=== PATIENT | male | born 1990 | race Caucasian/White ===

== ENCOUNTER 2020-02-21 10:27 | Emergency (ER) | payer OTHER, SELFPAY ==
[2020-02-21 10:52] VITALS: BP 111/67; PULSE 83; RESP 16; TEMP 36.8; O2SAT 99; BMI 24.5
[2020-02-21 11:00] VITALS: BP 111/67; PULSE 84; RESP 18; TEMP 36.8; O2SAT 96
--- NOTE | 2020-02-21 11:27 | ED_ITS ---
HPI - Dental/Oral General Chief complaint: Dental/Oral Stated complaint: dental pain Time Seen by Provider: 02/21/20 11:16 Source: patient Mode of arrival: ambulatory Limitations: no limitations History of Present Illness HPI Narrative: 29yo M c No Sig PMHx presenting to the ED c c/o r lower dental pain x 3 days c associated r lower facial swelling/pain. Denies fever, chills, N/V/D, Difficulty swallowing, pain with swallowing, changes in PO intake, trauma to face now or recently, difficulty speaking, recent dental procedure, heat or cold intolerance while eating, gum swelling, throat swelling, bleeding, lacera tions, facial redness, tongue swelling. Related Data Previous Rx's Medication Instructions Recorded ibuprofen 800 mg PO Q8H PRN #14 tab 02/21/20 oxycodone-acetaminophen [Percocet] 1 tab PO Q6H PRN #14 tab 02/21/20 penicillin V potassium 500 mg PO QID 14 Days #56 tab 02/21/20 Allergies Allergy/AdvReac Type Severity Reaction Status Date / Time No Known Allergies Allergy Verified 02/21/20 10:55 [No Known Allergies*] Review of Systems Review of Systems: Yes all other systems are reviewed and are negative Constitutional: Constitutional: Reports as per HPI Eyes: Eyes: Reports as per HPI ENT: Reports as per HPI Cardiovascular: Cardiovascular: Reports as per HPI Respiratory: Respiratory: Reports as per HPI Gastrointestinal: Gastrointestinal: Reports as per HPI Genitourinary: Genitourinary: Reports as per HPI Musculoskeletal: Musculoskeletal: Reports as per HPI Integumentary/Breasts: Skin/Breast: Reports as per HPI Neurologic: Reports as per HPI Psychiatric: Psychiatric: Reports as per HPI Endocrine: Endocrine: Reports as per HPI Hematologic/Lymphatic: Hematologic/Lymphatic: Reports as per HPI Allergic/Immunologic: Allergic/Immunologic: Reports as per HPI PMFSH Past Medical History Attestation statement: The following information was validated with the patient. Social History Social History Smoking Status: Current every day smoker Use of substances other than those prescribed or required for medical reasons: Yes Substance Use Type: Heroin Substance Use Frequency: Weekly Last Used Substance: Hours (ago) Advance Directives: No Advance Directives Information Provided: No Physical Exam Vital Signs: Vital Signs: Vital Signs Temp Pulse Resp BP Pulse Ox 02/21/20 11:00 98.2 F 84 18 111/67 96 02/21/20 10:52 98.2 F 83 16 111/67 99 Body Mass Index 24.5 Const: General: cooperative, healthy appearing, comfortable, no acute distress, well developed, alert, awake and Physically active Nutritional Appearance: average body habitus and well nourished Orientation/consciousness: patient oriented x3 Limitations: no limitations HENMT: Head: Yes normal to inspection, Yes No palpable skull fracture present, Yes normocephalic and Yes atraumatic Ears: hearing grossly normal bilaterally and external ears normal General nose exam: Normal external nose present Face and sinus: Yes other (sts to r lower mandible aspect no erythema noted ) Mouth: Normal oral and palatal mucosa present, lip normal, tongue normal, Normal salivary glands and ducts present, oropharynx normal and moist mucous membranes Teeth and gingiva: gingiva normal, caries (throughout c old dental partial fr actures noted ), poor dentition and other (to r lower tooth molar to external aspect there is fluctuance noted. ) Throat: Yes posterior oropharynx normal, Yes tonsils normal and Yes uvula midline Eyes: General: appearance normal, both eyes and all related structures Visual Pat: normal visual pat by confrontation Alignment and Position: alignment normal Periorbital: periorbital findings normal Eyelids: Yes eyelids normal Conjunctivae: conjunctivae normal Sclerae: sclerae normal Pupils: Equal, round and reactive pupils present EOM: EOMs intact bilaterally Neck: Neck: Yes normal visual inspection, Yes full ROM, Yes no lymphadenopathy, Yes no meningeal signs, Yes trachea midline and Yes supple Chest: Chest palpation & inspection: normal inspection of the chest Resp: Effort & Inspection: normal respiratory effort and able to speak in complete sentences Auscultation: clear to auscultation bilaterally, no crackles, no rales, no rhonchi and no wheezes Cardio: Rate: regular rate Rhythm: regular rhythm Heart sounds: S1 normal heart sound present and S2 normal heart sound present Peripheral pulses: Peripheral pulses 2+ throughout GI: Inspection: Yes normal to inspection Palpation (GI): Soft to palpation, nontender and No hepatosplenomegaly present Percussion: Yes normal to percussion Auscultation: normal bowel sounds : General: Yes no CVA tenderness Back/Spine/Pelvis: Back: no CVA tenderness Cervical Spine: normal cervical lordosis and cervical ROM normal Thoracic/Lumbar Spine: thoracic and lumbar spine normal to inspection, No Thoracic/lumbar spine scar(s), thoraco-lumbar ROM normal, straight leg raise negative bilaterally, pain with thoraco-lumbar ROM, paraspinal muscle tenderness, No thoraco-lumbar ROM limited, thoraco-lumbar spasm, No thoracic spinal tenderness, No lumbar spinal tenderness and other (No rashes/lesion/induration/fluctuance or signs infection noted.) Skin: General skin exam: no rashes or lesions noted, elasticity normal and turgor normal Trauma: no lacerations or abrasions Wounds: no wounds Hair: normal Nails: normal Neuro: General: patient oriented x3 and no meningeal signs Cranial nerves: Yes CN's II-XII intact bilaterally and Yes Equal, round and reactive pupils present Cognition (Neuro): normal cognition Gait exam (Neuro): Normal gait present Motor exam (neuro): 5/5 motor strength present throughout Extrem: General: Yes normal to inspection, Yes full ROM, Yes capillary refill normal, Yes no clubbing, cyanosis or edema, No no pedal edema, No no calf tenderness, Yes normal gait and No edema Right upper extremity: normal to inspection, full ROM and normal capillary refill; no edema Left upper extremity: normal to inspection, full ROM and normal capillary refill; no edema Right lower extremity: normal to inspection, full ROM and normal capillary refill; no edema Left lower extremity: normal to inspection, full ROM and normal capillary refill; no edema Psych: Appearance: grossly normal and well kempt Mental Status: mental status grossly normal Speech and movement: Normal speech and movement present and Clear speech present Affect: normal affect Attitude: cooperative Thought process: Normal thought process present Thought content: Normal thought content present Insight: Good insight present (Psych) Judgement: Good judgement present (Psych) Course Course Course Narrative: On physical exam - multiple missing teeth, with poor dentition. No redness, increased warmth or red streaking. No periorbital tenderness. Patient does have mild soft tissue swelling to right lower mandible aspect and Internal inspection pt noted to have fluctuance to the right lower external aspect of the posterior molars possible abscess. Patient is now status post I and D of abscess. Tolerated procedure well. Floor of the mouth is soft to palpation without masses. Speaking full sentences handling secretions without any difficulty. EOMI. Patient well appearing non toxic, well hydrated, speaking full sentences handling secretions without any difficulty. No cellulitis or lymphangitis. Given HPI and PE, most likely diagnosis: Tooth abscess. No cellulits, lymphangitis. Patient is afebrile, well appearing in no acute distress. No ginigival swelling, or bleeding. Multiple dental carries and poor dentition. Patient will make an appointment tomorrow with his dentist for this week. I I&D'ed the abscess, treated the pt's pain and infection. Educated on signs of worsening symptoms and advised to return to ED, should experience fever, N/V. Patient understands and agrees with plan. Procedures Abscess I/D Site: oral (right lower molar ) Side (if applicable): right Local Anesthetic: lidocaine 2% Amount of anesthesia used (mL): 5 Technique: needle aspiration and incised with blade Amount of fluid expressed (mL): 2 Sent for culture/gram staining?: No Irrigation: Yes Packing used?: none Complications: pain and bleeding (1ml) Discharge Plan Discharge Clinical Impression: Dental abscess, Dental caries, Pain due to dental caries Patient Disposition: Home, Self-Care Instructions: Dental Abscess (ED) Prescriptions: New oxycodone-acetaminophen [Percocet] 5-325 mg tablet 1 tab PO Q6H PRN (Reason: pain) Qty: 14 RF: 0 ibuprofen 800 mg tablet 800 mg PO Q8H PRN (Reason: pain) Qty: 14 RF: 0 penicillin V potassium 500 mg tablet 500 mg PO QID 14 Days Qty: 56 RF: 0
[2020-02-21] MEDS: oxyCODONE HCl Immed Release 5 MG TABLET PO (11:41)
[2020-02-21] MEDS: Lidocaine HCl 2 % MPF 5 ML VIAL INFILTRATI (11:41)
[2020-02-21] MEDS: Penicillin V Potassium 250 MG TABLET 500 MG PO (11:41)
== END 2020-02-21 12:06 | disposition home or self-care (01) ==
PROVIDERS: Emergency Provider Emergency Medicine
DX: K04.7 Periapical abscess without sinus (principal); K02.9 Dental caries, unspecified; K08.89 Other specified disorders of teeth and supporting structures; F17.200 Nicotine dependence, unspecified, uncomplicated; F11.90 Opioid use, unspecified, uncomplicated
CPT/HCPCS: 41800; 99283; 99284

== ENCOUNTER 2022-08-31 14:15 | Emergency (ER) | payer MEDICAID, SELFPAY ==
[2022-08-31 14:18] VITALS: BP 128/70; BP 136/56; PULSE 77; PULSE 80; RESP 18; TEMP 36.4; O2SAT 100; O2SAT 99; BMI 23.6
[2022-08-31] MEDS: Tetracaine HCl/PF 0.5% Oph Sol 4 ML DROPS 1 DROP EYE-LEFT (16:58)
[2022-08-31] MEDS: Fluorescein Sodium STRIP 1 STRIP EYE-LEFT (16:58)
--- NOTE | 2022-08-31 17:01 | ED.GENADULT ---
HPI - General Adult General Chief complaint: Eye Problems Stated complaint: R eye pain x 2 weeks per EMS History of Present Illness HPI narrative: Patient complains of pain right side of his mouth radiating to his right orbit area as well as some redness in the right eye and some pain in the right eye He denies any vision loss there is no photophobia, it does hurt worse when he moves his eyes left and right, this is been going on for 2 weeks, denies any discharge from the eye, pain is mild and has not changed in 2 weeks He denies fever chills, denies any difficulty swallowing Related Data Previous Rx's Medication Instructions Recorded ibuprofen 800 mg tablet 800 mg PO Q8H PRN pain #14 tabs 02/21/20 oxycodone-acetaminophen 5 mg-325 1 tab PO Q6H PRN pain #14 tabs 02/21/20 mg tablet (Percocet) penicillin V potassium 500 mg 500 mg PO QID den 14 days #56 tabs 02/21/20 tablet amoxicillin 875 mg-potassium 1 tab PO Q12H 7 days #14 tabs 08/31/22 clavulanate 125 mg tablet ibuprofen 600 mg tablet 600 mg PO Q6H PRN pain #20 tabs 08/31/22 Allergies Allergy/AdvReac Type Severity Reaction Status Date / Time No Known Allergies Allergy Verified 02/21/20 10:55 [No Known Allergies*] [facility] Past Medical History Source: nursing notes reviewed Social History Social History Substance Use Type: Heroin Advance Directives: No Advance Directives Information Provided: Yes Physical Exam ED Vital Signs: Vital Signs - 24 hr 08/31/22 14:18 Temperature 97.6 F Pulse Rate 77 Respiratory Rate 18 Blood Pressure 136/56 L Pulse Oximetry 100 BMI result Body Mass Index 23.6 General appearance is no acute distress The eye exam there is a right sub conjunctival hemorrhage in the right lower outer aspect of the eye, the conjunctiva are normal no redness or discharge Pupils equal round reactive to light extraocular motions are intact Visual acuity was 2020 bilateral Staining with fluorescein no dye uptake Palpation of the eye there is no tenderness or bulging of the eye iop reading on right eye only was 14 There was some mild tenderness to the right lower orbit but no periorbital erythema or swelling The dental exam there is a cracked upper molar on the upper right, this was tender but there was no fluctuant abscess no impairment of breathing or swallowing no swelling under the tongue Neck is supple Respiratory no distress Extremities full range of motion x4 Skin no rash Course Course Course Narrative: There were no acute findings on the eye exam othe than right subconjunctival hemorrhage, visual acuity was 2020 bilaterally, IOP was normal, no dye uptake was staining no photophobia There was a right maxillary tooth that was tender to touch and patient does complain that he believes the pain is radiating from that area into his eye, so pain around the eye is likely from a dental infection or a cracked tooth exposing He is advised to follow with a dentist and started on Augmentin antibiotic Medications Administered Discontinued Medications Generic Name Dose Route Start Last Admin Trade Name Ezioq PRN Reason Stop Dose Admin Amoxicillin/Clavulanate Potassium 875 mg 08/31/22 17:15 08/31/22 17:18 Amoxicillin/Potassium Clav 875 Mg Tablet PO 08/31/22 17:16 875 mg ONCE ONE Administration Fluorescein Sodium 1 strip 08/31/22 16:35 08/31/22 16:58 Fluorescein Sodium Strip EYE-LEFT 08/31/22 16:36 1 strip ONCE ONE Administration Ibuprofen 600 mg 08/31/22 17:15 08/31/22 17:18 Ibuprofen 600 Mg Tablet PO 08/31/22 17:16 600 mg ONCE ONE Administration Tetracaine HCl 1 drop 08/31/22 16:35 08/31/22 16:58 Tetracaine Hcl/Pf 0.5% Oph So 4 Ml Drops EYE-LEFT 08/31/22 16:36 1 drop ONCE ONE Administration Discharge Plan Discharge Clinical Impression: Dental caries Patient Disposition: Home, Self-Care Additional Instructions: I believe the pain shooting into her right eye is from an infection in mouth pressing on a nerve, which can happen with dental infections vision was normal and the exam of eye was normal except for a subconjunctival hemorrhage which is a broken vessel in the white part of the eye which is not harmful Follow with dentist If needed follow routinely with eye doctor but any worsening eye pain or vision loss come back to the ER Should eye pain worsen, any vision loss, any worse condition or any concerns return to the emergency room Prescriptions: New amoxicillin-pot clavulanate 875-125 mg tablet 1 tab PO Q12H 7 Days Qty: 14 0RF ibuprofen 600 mg tablet 600 mg PO Q6H PRN (Reason: pain) Qty: 20 0RF No Action oxycodone-acetaminophen [Percocet] 5-325 mg tablet 1 tab PO Q6H PRN (Reason: pain) Qty: 14 0RF ibuprofen 800 mg tablet 800 mg PO Q8H PRN (Reason: pain) Qty: 14 0RF penicillin V potassium 500 mg tablet 500 mg PO QID 14 Days Qty: 56 0RF Referrals: Sandeep Mcginnis [Physician] - (Right eye pain) Interventions: ED Discharge Assessment Last Done: 08/31/22 17:20 Discharge Date/Time: 08/31/22 17:20
[2022-08-31] MEDS: Ibuprofen 600 MG TABLET PO (17:18)
[2022-08-31] MEDS: Amoxicillin/Potassium Clav 875 MG TABLET PO (17:18)
== END 2022-08-31 17:20 | disposition home or self-care (01) ==
PROVIDERS: Emergency Provider Emergency Medicine Emergency Medical Services
DX: K02.9 Dental caries, unspecified (principal)
CPT/HCPCS: 99283

== ENCOUNTER 2024-06-21 19:31 | Emergency (ER) | payer OTHER, SELFPAY ==
[2024-06-21] VITALS (12 sets, daily range): BP systolic 117–141; BP diastolic 55–81; PULSE 59–80; RESP 16–116; TEMP 36.8–36.9; O2SAT 98–100; BMI 25.5
--- NOTE | ~2024-06-21 | CT_ITS ---
CLINICAL HISTORY: fall 8-10 ft ladder, brief LOC CT abdomen and pelvis without contrast Comparison: None Findings: Please refer to separate report for chest CT. No acute solid abdominal organ injury by noncontrast imaging. Splenomegaly with the spleen measuring 14 cm. Gallbladder is contracted but otherwise unremarkable. Ingested material and/or debris of the imaged stomach. No small bowel obstruction. Appendix is not definitively seen. Right lower quadrant is mostly obscured by superficial metal artifacts. Severe stool burden is noted, including the cecum. No free intraperitoneal air. Prostate gland and urinary bladder are unremarkable for noncontrast CT with artifacts. No acute pelvic fracture. Partial fusion L3 and L4. Facet arthropathy of the lumbar spine is greater than expected for age. Schmorl's nodes including thoracic vertebrae. [id number] osteoarthritis of the right hip is greater than expected for age. Mild osteoarthritis of the left hip is greater than expected for age. IMPRESSION: 1. No acute solid abdominal organ injury. 2. Splenomegaly. 3. Severe stool burden. 4. No acute pelvic fracture. 5. Degenerative changes including hips and spine are greater than expected for age. This document has been electronically signed by: Steve Morales MD on 06/21/2024 21:33:16
--- NOTE | ~2024-06-21 | CT_ITS ---
CLINICAL HISTORY: fall 8-10 ft ladder, brief LOC CT head without contrast Comparison: No prior brain imaging available at this time. Findings: No acute intracranial hemorrhage. No midline shift or hydrocephalus. No arterial territorial infarction by CT. Posterior fossa arachnoid cyst measures up to 0.5 cm. No acute skull fracture, in the [id number]. Imaged paranasal sinuses and imaged mastoid air cells are well aerated. Imaged orbits are unremarkable. IMPRESSION: 1. No acute intracranial abnormality by CT. 2. No acute skull fracture. This document has been electronically signed by: Steve Morales MD on 06/21/2024 21:35:35
--- NOTE | ~2024-06-21 | CT_ITS ---
CLINICAL HISTORY: fall 8-[address] cervical spine without contrast Comparison: None Findings: No acute fracture of the cervical spine. Mild straightening of the cervical lordosis. No significant listhesis. No osseous spinal stenosis by CT. Mild/minimal osteoarthritis of the craniocervical junction. Mild ligament calcifications and small osteophytes are noted. Small hemangioma is present including C7 vertebral body. No paraspinal hematoma. Mild motion about imaged lung apices. IMPRESSION: No acute fracture of the cervical spine. This document has been electronically signed by: Steve Morales MD on 06/21/2024 21:30:20
--- NOTE | ~2024-06-21 | XR_ITS ---
CLINICAL HISTORY: fall, pain, deformity 4 view right wrist Comparison: None Findings: Acute comminuted and dorsally displaced fracture of the right distal radius. No significant loss of joint space, osteophyte, or erosions. No radiopaque foreign body. IMPRESSION: 1. Acute comminuted and dorsally displaced fracture of the right distal radius. This document has been electronically signed by: Simone Elaine MD on 06/21/2024 20:50:16
--- NOTE | ~2024-06-21 | XR_ITS ---
CLINICAL HISTORY: Postreduction 3 view right wrist Comparison: X-rays of the right wrist from 06/21/2024 at 10:59 p.m. and 8:18 p.m. Findings: Redemonstration of the acute comminuted distal radius intra-articular fractures. Soft tissue swelling and effusion redemonstrated. No displaced carpal fracture or dislocation. Mild angulation with apex directed dorsally. New plaster splint and/or cast artifact present. IMPRESSION: Redemonstration of the distal radius fractures post casting. And with improved alignment compared to 8:18 p.m. This document has been electronically signed by: Steve Morales MD on 06/21/2024 23:39:32
--- NOTE | ~2024-06-21 | CT_ITS ---
CLINICAL HISTORY: fall 8-10 ft ladder, brief LOC CT chest without contrast Comparison: CT of the abdomen and pelvis from same day. Findings: No consolidation, pneumothorax, or pleural effusion. No mediastinal hematoma in this noncontrast study. Mild residual thymic tissue. Nonenlarged medial sternal lymph nodes. Heart size within limits of normal. Acute nondisplaced left anterior lateral 10th rib fracture. Mild vertebral height losses appear old with multifocal Schmorl's nodes. Please refer to separate report for included abdomen. IMPRESSION: 1. Acute nondisplaced left lower rib fracture. 2. No pneumothorax or consolidation. This document has been electronically signed by: Steve Morales MD on 06/21/2024 21:32:57
--- NOTE | ~2024-06-21 | XR_ITS ---
CLINICAL HISTORY: Second postreduction series 3 view right wrist Comparison: X-rays of the right wrist from 06/21/2024 at 10:59 p.m. and 8:18 p.m. Findings: Redemonstration of the acute comminuted distal radius intra-articular fractures. Soft tissue swelling and effusion redemonstrated. No displaced carpal fracture or dislocation. Mild angulation with apex directed dorsally. New plaster splint and/or cast artifact present. IMPRESSION: Redemonstration of the distal radius fractures post casting. And with improved alignment compared to 8:18 p.m. This document has been electronically signed by: Steve Morales MD on 06/22/2024 00:03:29
--- NOTE | 2024-06-21 19:40 | ED_ITS ---
HPI - Extremity Injury (Upper) General Chief Complaint: Fall Stated Complaint: ? broken wrist / arm Time Seen by Provider: 06/21/24 20:16 Related Data Home Medications ?Medication ?Instructions ?Recorded ?Confirmed methadone 10 mg tablet 65 mg PO DAILY 06/23/24 Allergies Allergy/AdvReac Type Severity Reaction Status Date / Time No Known Allergies Allergy Verified 06/21/24 19:42 [No Known Allergies*] [facility] Social History Social History Substance Use Type: Crack/Cocaine Physical Exam 2 Vital Signs: Vital Signs: Last Vital Signs Temp 98.4 F 06/22/24 00:16 Pulse 73 06/22/24 00:16 Resp 16 06/22/24 00:16 BP 126/64 06/22/24 00:16 Pulse Ox 100 06/22/24 00:16 O2 Del Method Room Air 06/22/24 00:16 O2 Flow Rate 2 06/21/24 23:23 BMI result Body Mass Index 25.5 Course Course Course Narrative: This is an RME performed by Nemo Lin CNP: Additional HPI, ROS, PE not included below will be deferred to primary provider. Patient is a 33-year-old male left-hand dominant who presents emergency department for evaluation of a right wrist injury. He reports prior to arrival he was on a ladder attempting to hang something for a friend when he lost his balance and fell approximately 8-10 feet, states fall landing onto left side, unclear whether any head strike or not, states i blacked out for like 2 weconds then got up on his own, believes when he landed his right wrist was in an outstretched position. Denies use of anticoagulants or known coagulation disorders. Pain is 10/10 to the right wrist. Also endorsing pain to the left proximal femur/hip. Ambulatory with steady gait. No focal neurological deficits. Denies chest pain, shortness of breath, abdominal pain. Right wrist with obvious deformity, 1+ radial pulse, decreased sensation and movement to digits. No focal neuro deficits, no midline cervical/thorocic/lumbar spine tenderness, step-offs, deformities. Ambulatory with steady gait. XR right wrist and left hip which will include localized area of proximal femur he was endorsing pain to exclude fracture/dislocation. Given height of fall, obtaining trauma CT scan head, cervical spine, chest, abdomen pelvis. Reevaluation(s) Reevaluation #1: See additional note dated 06/21/[address] Sullivan Medications Administered Discontinued Medications Generic Name Dose Route Start Last Admin Trade Name Saundra PRN Reason Stop Dose Admin Hydromorphone HCl 1 mg 06/21/24 20:19 06/21/24 21:17 Hydromorphone Hcl 1 Mg/Ml Syringe IVPUSH 06/21/24 20:20 1 mg ONCE ONE Administration Protocol Lidocaine HCl 5 ml 06/21/24 21:54 06/21/24 22:39 Lidocaine Hcl 1 % Mpf 5 Ml Vial INFILTRATI 06/21/24 21:55 5 ml ONCE ONE Administration Lidocaine HCl 5 ml 06/21/24 21:54 06/21/24 22:40 Lidocaine Hcl 1 % Mpf 5 Ml Vial INFILTRATI 06/21/24 21:55 5 ml ONCE STA Administration Propofol 150 mg 06/21/24 21:55 06/21/24 22:40 Propofol 200 Mg/20 Ml Vial IVPUSH 06/21/24 21:56 150 mg ONCE ONE Administration Propofol 50 mg 06/21/24 23:18 06/21/24 23:20 Propofol 200 Mg/20 Ml Vial IVPUSH 06/21/24 23:19 50 mg ONCE ONE Administration Medical Decision Making Lab Data 06/21/24 21:43 06/21/24 21:43 Labs: Lab Results 06/21/24 Range/Units 21:43 WBC 7.0 (4.8-10.8) X10*3/uL RBC 4.18 L (4.60-5.80) X10*6/uL Hgb 11.9 L (14.0-18.0) g/dl Hct 35.0 L (42.0-52.0) % MCV 83.7 (80.0-98.0) fL MCH 28.5 (27.0-33.0) pg MCHC 34.0 (31.0-36.0) g/dl RDW 13.3 (11.0-16.0) % Plt Count 172 (160-400) X10*3/uL MPV 9.8 (9.4-12.4) fL Immature Gran % (Auto) 0.4 (0.0-0.4) % Neut % (Auto) 71.5 (45-73) % Lymph % (Auto) 17.8 L (20-40) % Cass % (Auto) 6.8 (2-11) % Eos % (Auto) 3.1 (0-4) % Baso % (Auto) 0.4 (0-2) % Lymph # (Auto) 1.3 (1.2-4.9) X10*3/uL Cass # (Auto) 0.5 (0.1-1.2) X10*3/uL Eos # (Auto) 0.2 (0.0-0.4) X10*3/uL Baso # (Auto) 0.0 (0.0-0.2) X10*3/uL Abs Immat Gran (auto) 0.03 (0.00-0.03) X10*3/uL Absolute Neuts (auto) 5.0 (2.0-8.3) x10*3/uL Absolute Nucleated RBC 0.000 (0.0-0.012) X10*3/uL Nucleated RBC % (auto) 0.0 (0.0-0.2) /100WBC PT 11.5 (10.9-12.4) SEC INR 1.0 (0.9-1.1) Sodium 141 (135-145) mmol/L Potassium 4.6 (3.3-5.1) mmol/L Chloride 109 H (96-108) mmol/L Carbon Dioxide 23 (22-29) mmol/L Anion Gap 14 (12-20) BUN 20 H (9-16) mg/dL Creatinine 0.80 (0.5-1.4) mg/dL Estim Creat Clear Calc 133.7 Estimated GFR > 60 Random Glucose 110 (60-115) mg/dL Calcium 9.2 (8.4-10.2) mg/dL Total Bilirubin 0.4 (0.0-1.0) mg/dL AST 31 (5-37) U/L ALT 27 (0-40) U/L Alkaline Phosphatase 75 (39-117) U/L Total Protein 7.5 (6.5-8.0) g/dL Albumin 4.3 (3.5-5.0) g/dL Discharge Plan Discharge Clinical Impression: Fracture of wrist, Fall from ladder, Closed fracture of right distal radius Patient Disposition: Home, Self-Care Additional Instructions: You broke your wrist. The broken bone is called the radius in you broke this into several pieces that go into the joint space. Here in the emergency department we are able to pull on your broken bone and get it back in place however you need to follow-up with our orthopedic doctors within the next 2-5 days. They will need to evaluate you to determine if you can be placed in a cast or if you need an operation to fix this broken bone. Keep the splint on until your re-evaluated by the orthopedic doctors. Do not get the splint wet. You can apply ice to the sides of the splint to help reduce the swelling. Keep your arm elevated above the level of your heart to reduce the swelling as well. Take ibuprofen 200 mg pills, 3 pills every 6 hours as needed for pain. Take Tylenol (acetaminophen) 500 mg pills, 2 pills every 4-6 hours as needed for pain. For pain not relieved by ibuprofen or Tylenol take oxycodone 5 mg pills, 1 pill every 4 hours as needed for pain. Do not drive or work while taking this medication since they can cause sleepiness. Oxycodone is a narcotic medication that can be addicting. If you are concerned about addiction you can ask the pharmacist for less pills or do not get this prescription filled. Call our orthopedic providers office, Dr. Grijalva tomorrow morning to make a follow-up appointment within 2-5 days for re-evaluation of your wrist fracture.. Please return to the emergency department if your symptoms get worse or if you develop any symptoms that are concerning to you. Prescriptions: No Action methadone 10 mg tablet 65 mg PO DAILY Referrals: Catarino Grijalva MD [Physician] - 5 days (Comminuted, displaced intra-articular fracture of the right distal radius, reduced in ED, placed in sugar-tong splint, meets follow-up within 1 week to determine if he needs surgical repair) Interventions: ED Discharge Assessment Last Done: 06/22/24 00:16 Discharge Date/Time: 06/22/24 00:18 Print Language: Jordanian
--- NOTE | 2024-06-21 20:27 | ED_ITS ---
HPI - Fall General Chief Complaint: Fall Stated Complaint: ? broken wrist / arm Time Seen by Provider: 06/21/24 20:16 Source: patient Mode of arrival: ambulatory Limitations: no limitations History of Present Illness HPI Narrative: This is a 33 years old the male fully ambulatory to the emergency department after a fall from the ladder he fell about 8-10 feet it chief complaint is right wrist pain ,he is left-handed. complaint: fall Onset (ago): hour(s) (2) Fall from: other (From the ladder) Loss of consciousness: none Prolonged down time: no Symptoms prior to fall: none Location of injury: other Location of injury - extremities: right: forearm Severity: moderate Quality: dull Associated symptoms (after fall): denies Related Data Previous Rx's ?Medication ?Instructions ?Recorded ibuprofen 800 mg tablet 800 mg PO Q8H PRN pain #14 tabs 02/21/20 oxycodone-acetaminophen 5 mg-325 1 tab PO Q6H PRN pain #14 tabs 02/21/20 mg tablet (Percocet) penicillin V potassium 500 mg 500 mg PO QID den 14 days #56 tabs 02/21/20 tablet amoxicillin 875 mg-potassium 1 tab PO Q12H 7 days #14 tabs 08/31/22 clavulanate 125 mg tablet ibuprofen 600 mg tablet 600 mg PO Q6H PRN pain #20 tabs 08/31/22 Allergies Allergy/AdvReac Type Severity Reaction Status Date / Time No Known Allergies Allergy Verified 06/21/24 19:42 [No Known Allergies*] Review of Systems Constitutional: Constitutional: Reports no additional constitutional complaints ENT: Reports system reviewed and no additional complaints, except as documented Cardiovascular: Cardiovascular: Reports no additional cardiovascular complaints Gastrointestinal: Gastrointestinal: Reports no additional gastrointestinal complaints [facility] Past Medical History [facility] Narrative: Denies Social History Social History Substance Use Type: Heroin Advance Directives: No Advance Directives Information Provided: No Physical Exam Vital Signs: Vital Signs: Last Vital Signs Temp 98.2 F 06/21/24 19:35 Pulse 80 06/21/24 19:35 Resp 16 06/21/24 19:35 BP 134/74 06/21/24 19:35 Pulse Ox 98 06/21/24 19:35 O2 Del Method Room Air 06/21/24 19:35 BMI result Body Mass Index 25.5 No acute distress Const: General: cooperative, comfortable and no acute distress Nutritional Appearance: average body habitus Orientation/consciousness: patient oriented x3 Limitations: no limitations HEENT: Head: Yes normal to inspection Ears: hearing grossly normal bilaterally General nose exam: Normal external nose present Mouth: Normal oral and palatal mucosa present Throat: Yes posterior oropharynx normal Neck: Neck: Yes normal visual inspection and Yes full ROM Chest: Chest palpation & inspection: normal inspection of the chest Resp: Effort & Inspection: normal respiratory effort Auscultation: clear to auscultation bilaterally Cardio: Jugular venous distension: no JVD Rate: regular rate Rhythm: regular rhythm GI: Inspection: Yes normal to inspection Palpation (GI): Soft to palpation and not firm Skin: General skin exam: no rashes or lesions noted Rashes: no rashes Neuro: General: patient oriented x3 Extrem: Other: Examination of the right wrist showed deformity good pulses. Decreased range of motion swelling Course Reevaluation(s) Reevaluation #1: I discussed the case with the orthopedist Christiana Bah will reduce the fx Time: 20:35 Reevaluation #2: I am off shift now signed out to Dr Cope Time: 21:08 Medical Decision Making Medical Decision Making MDM Narrative: Patient presents after a fall complaining of right wrist pain we will obtain imaging Differential Diagnosis Differential Diagnoses: The differential diagnosis associated with the presentation includes Wrist fracture /hand fracture Admission/Observation Consideration of admission/observation: Escalation of care including admission/observation considered Independent Interpretation I performed an independent interpretation of an: Plain X-Ray Interpretation: I reviewed interpreted the x-ray of the wrist as wrist fracture displaced Radiology Impression Discussion of test interpretation with radiology: I have reviewed the radiologist's reading. Discharge Plan Discharge Clinical Impression: Fracture of wrist Qualifiers: Encounter type: initial encounter Fracture type: closed Laterality: right Qualified Code(s): S62.101A - Fracture of unspecified carpal bone, right wrist, initial encounter for closed fracture Fall from ladder Qualifiers: Encounter type: initial encounter Qualified Code(s): W11.XXXA - Fall on and from ladder, initial encounter Patient Disposition: Still a Patient Prescriptions: No Action oxycodone-acetaminophen [Percocet] 5-325 mg tablet 1 tab PO Q6H PRN (Reason: pain) Qty: 14 0RF ibuprofen 800 mg tablet 800 mg PO Q8H PRN (Reason: pain) Qty: 14 0RF penicillin V potassium 500 mg tablet 500 mg PO QID 14 Days Qty: 56 0RF amoxicillin-pot clavulanate 875-125 mg tablet 1 tab PO Q12H 7 Days Qty: 14 0RF ibuprofen 600 mg tablet 600 mg PO Q6H PRN (Reason: pain) Qty: 20 0RF Print Language: Qatari
[2024-06-21] MEDS: HYDROmorphone HCl 1 MG/ML SYRINGE IVPUSH (21:17)
[2024-06-21 21:48] LABS: MANUAL DIFF FLAG NO
[2024-06-21 22:02] LABS: Basophils Percent Auto 0.4 % (0-2); Eosinophils Absolute Auto 0.2 X10*3/uL (0.0-0.4); Eosinophils Percent Auto 3.1 % (0-4); Hemoglobin 11.9 g/dl (14.0-18.0); Imm Gran Abs Auto 0.03 X10*3/uL (0.00-0.03); Imm Gran Pct Auto 0.4 % (0.0-0.4); Lymphocytes Absolute Auto 1.3 X10*3/uL (1.2-4.9); Lymphocytes Percent Auto 17.8 % (20-40); Mean Corpuscular Hemoglobin 28.5 pg (27.0-33.0); Mean Corpuscular Volume 83.7 fL (80.0-98.0); Mean Platelet Volume 9.8 fL (9.4-12.4); Monocytes Absolute Auto 0.5 X10*3/uL (0.1-1.2); Monocytes Percent Auto 6.8 % (2-11); Neutrophils Percent Auto 71.5 % (45-73); Platelet Count 172 X10*3/uL (160-400); Red Blood Count 4.18 X10*6/uL (4.60-5.80); Red Cell Distribution Width 13.3 % (11.0-16.0)
[2024-06-21 22:07] LABS: Prothrombin Time 11.5 SEC (10.9-12.4)
[2024-06-21 22:17] LABS: Alanine Aminotransferase 27 U/L (0-40); Albumin Level 4.3 g/dL (3.5-5.0); Alkaline Phosphatase 75 U/L (39-117); Anion Gap 14 (12-20); Aspartate Amino Transferase 31 U/L (5-37); Bilirubin Total 0.4 mg/dL (0.0-1.0); Blood Urea Nitrogen 20 mg/dL (9-16); Calcium 9.2 mg/dL (8.4-10.2); Carbon Dioxide 23 mmol/L (22-29); Chloride 109 mmol/L (96-108); Creatinine Clr Calc Pharmacy 133.7; Estimated Glomerular Filt Rate > 60; Glucose Random 110 mg/dL (60-115); Potassium 4.6 mmol/L (3.3-5.1); Sodium 141 mmol/L (135-145); Total Protein 7.5 g/dL (6.5-8.0)
[2024-06-21] MEDS: Lidocaine HCl 1 % MPF 5 ML VIAL INFILTRATI ×2 (22:39→22:40)
[2024-06-21] MEDS: propofoL 200 MG/20 ML VIAL 150 MG IVPUSH (22:40)
--- NOTE | 2024-06-21 22:47 | PC.NURSE ---
Addendum entered by Stephanie Good 06/21/24 22:50: dose given was 100 mg by provider. Original Note: first dose of propofol given now 50 mg by provider. hr 67 bp 124/85 sat 100% endtital 35 rr 18
--- NOTE | 2024-06-21 22:50 | PC.NURSE ---
pt now given another 50 mg by provider for sedation. pt talking and wide awake
--- NOTE | 2024-06-21 22:54 | PC.NURSE ---
pt given 2.5 ml 50 mg iv propofol by provider. hr 76 rr 16 sat 99% co2 36 bp 136/66
--- NOTE | 2024-06-21 23:03 | PC.NURSE ---
post exray taken and almost there, order for more propofol to be given. provider at bedside.
--- NOTE | 2024-06-21 23:18 | PC.NURSE ---
pt received a total of 200mg propofol with provider at bedside, pt on monitor, resp at bedside. end co2 at 35. sat remained at 99% on 2l nc for the procedure. bp stable. 118/70. pt is awake talking clearly, father present. pt had no sideeffects.
[2024-06-21] MEDS: propofoL 200 MG/20 ML VIAL 50 MG IVPUSH (23:20)
--- NOTE | 2024-06-21 23:20 | PC.NURSE ---
plan at this time is to have another xray at bedside.
[2024-06-22 00:16] VITALS: BP 126/64; PULSE 73; RESP 16; TEMP 36.9; O2SAT 100
== END 2024-06-22 00:18 | disposition home or self-care (01) ==
PROVIDERS: Nurse Practitioner Family; Emergency Provider Emergency Medicine Emergency Medical Services
DX: S62.101A Fracture of unspecified carpal bone, right wrist, initial encounter for closed fracture (principal); M25.531 Pain in right wrist; R10.2 Pelvic and perineal pain; R51.9 Headache, unspecified; M54.2 Cervicalgia; R07.89 Other chest pain; W11.XXXA Fall on and from ladder, initial encounter; Y93.9 Activity, unspecified; Y92.9 Unspecified place or not applicable; Y99.8 Other external cause status; Z79.899 Other long term (current) drug therapy
CPT/HCPCS: 25605; 29125; 36415; 70450; 71250; 72125; 73100; 73110; 74176; 80053; 85025; 85610; 96374; 96375; 96376; 99284; 99285; J1171; J2003; J2704

== ENCOUNTER → 2024-06-21 19:44 | Outpatient (BNV) | payer OTHER, SELFPAY | PROVIDERS: Emergency Provider Emergency Medicine; Visit Provider Student in an Organized Health Care Education/Training Program | DX: S52.501A Unspecified fracture of the lower end of right radius, initial encounter for closed fracture (principal) | CPT/HCPCS: 73100 ==

== ENCOUNTER 2024-06-23 14:26 | Outpatient (REF) | payer OTHER, SELFPAY | END 2024-06-23 14:27 | disposition home or self-care (01) | LOC: HO.XRAY 14:26 | DX: S52.591A Other fractures of lower end of right radius, initial encounter for closed fracture (principal) | CPT/HCPCS: 73110 ==

== ENCOUNTER → 2024-06-23 14:30 | Outpatient (BNV) | payer OTHER, SELFPAY | PROVIDERS: Visit Provider Radiology Diagnostic Radiology | DX: M25.531 Pain in right wrist (principal) | CPT/HCPCS: 73110 ==

== ENCOUNTER 2024-06-23 14:54 | Outpatient (AMB) | payer OTHER, SELFPAY ==
--- NOTE | 2024-06-23 14:56 | A.OFFVIS_ITS ---
Intake Visit Reasons: FC - Right Distal Radius Fx Do not remove splint. Intake Note: Vishal is a 33 year old left hand dominant female who presents today for a fracture care visit. Patient took a fall off a ladder, landing on the right wrist on 06/21/23 . Patient was seen at [facility] ED after the injury where his wrist w as reduced and placed in a sugar tong splint. Patient reports that he is having some intermittent pain. When he feels pain it is felt as a throbbing pain. He has numbness in the fingers. Allergies No Known Allergies [No Known Allergies*] Allergy (Verified 06/21/24 19:42) HPI HPI FC - Right Distal Radius Fx Do not remove splint.: Details: Vishal is a 33 year old left hand dominant female who presents today for a fracture care visit. Patient took a fall off a ladder, landing on the right wrist on 06/21/23 . Patient was seen at [facility] ED after the injury where his wrist was reduced and placed in a sugar tong splint. Patient reports that he is having some intermittent pain. When he feels pain it is felt as a throbbing pain. He has numbness in the fingers. [facility] Social History Substance Use Type: Crack/Cocaine Physical Exam Extrem Other: Patient is alert, oriented, and in no acute distress. Neuro: Diminished sensation to the tip of the right ring finger Normal sensation of the tips of all other digits of the right hand in the office today Vascular: Cap refill brisk Pain: Patient reports no pain with range of motion of the fingers of the right hand ROM: Patient is able to flex and extend all digits of the right hand as tolerated in the splint Skin: No lacerations or abrasions. General: No ecchymosis, erythema, or evidence of infection. Psych: Appears grossly normal Affect normal Attitude cooperative Results Reviewed Results Reviewed: X-rays obtained in the office today and independently reviewed by me, Kevon Mckoy PA-C, demonstrate displaced, comminuted, intra-articular fracture of the right distal radius with multiple intra-articular splits. Assessment & Plan Assessment & Plan (1) Closed fracture of right distal radius: Code(s): S52.501A - Unspecified fracture of the lower end of right radius, initial encounter for closed fracture Category: Medical Qualifiers: Encounter type: initial encounter Fracture morphology: other fracture Qualified Code(s): S52.591A - Other fractures of lower end of right radius, initial encounter for closed fracture Plan 1. Distal radius fracture, right I educated the patient about the condition. I discussed both operative and nonoperative treatment options. The patient would like to proceed with surgery. The risks and benefits of operative treatment were discussed with the patient and the patient wishes to proceed with surgery. These risks include, but are not limited to, risk of damage to blood vessels, nerves, tendons, infection, recurrence, incomplete relief of preoperative symptoms, persistent pain, possible need for further surgery, and the risks associated with regional blocks and/or anesthesia. Plan is to take the patient to the operating room at some point in the next few weeks for the following procedures: 1. Right distal radius ORIF All of the preoperative paperwork including the consent was discussed today. All of the patient's questions were answered in the clinic today. The patient understands that they will be in contact with our surgical dental assistant to discuss scheduling their procedure. Patient denies diabetes, blood thinners, asthma, heart issues, lung issues, kidney issues Patient reports that he does smoke, and will try to cut down as much as possible before surgery Medications: Discontinued ibuprofen Discontinued Reason: Patient Completed Course 800 mg PO Q8H PRN 14 tabs 0RF pain oxycodone-acetaminophen 5-325 mg (Percocet) Discontinued Reason: Patient no longer taking 1 tab PO Q6H PRN 14 tabs 0RF pain penicillin V potassium Discontinued Reason: Patient no longer taking 500 mg PO QID 14 days 56 tabs 0RF den amoxicillin-pot clavulanate 875-125 mg Discontinued Reason: Patient no longer taking 1 tab PO Q12H 7 days 14 tabs 0RF ibuprofen Discontinued Reason: Patient no longer taking 600 mg PO Q6H PRN 20 tabs 0RF pain oxycodone Patient may request partial refill; Partial Fill upon patient request. Discontinued Reason: Patient no longer taking 5 mg PO Q6H PRN 14 tabs 0RF pain Coding Level of Care Code New Pt Level 4 (24699) Diagnoses Closed fracture of right distal radius S52.591A Encounter type: initial encounter Fracture morphology: other fracture
--- OUTSIDE RECORDS SUMMARY | 2024-06-23 15:45 | XMS_ITS | Clinical Summary ---
Author Organization [facility] Address [address] [place] [address] Care Team Providers Care Sanitation Supervisor Name Role Phone Patient, Has No Pcp Or Ref Primary Care Provider Unavailable Allergies No known active allergies Medications No known medications Social History Tobacco Use Types Packs/Day Years Used Date Smoking Tobacco: Never Assessed Sex and Gender Information Value Date Recorded Sex Assigned at Male 12/16/2023 7:00 PM EDT Legal Sex Male 6:53 PM EDT Gender Identity Not on file Sexual Orientation Not on file Last Filed Vital Signs Vital Sign Reading Time Taken Comments Blood Pressure 118/74 12/16/2023 10:00 PM EDT Pulse 88 12/16/2023 10:00 PM EDT Temperature 38.1 ??C (100.6 ??F) 12/16/2023 8:06 PM E DT Respiratory Rate 19 12/16/2023 10:00 PM EDT Oxygen Saturation 98% 12/16/2023 10:00 PM EDT Inhaled Oxygen Concentration - - Weight 81.6 kg (180 lb) 12/16/2023 8:04 PM EDT Height 180 cm (5' 10.87 ) 12/16/2023 8:04 PM EDT Body Mass Index 25.2 12/16/2023 8:04 PM EDT Plan of Treatment Health Maintenance Due Date Last Done Comments HIV Screening 1992 Varicella Vaccines (1 of 2 - 13+ 2-dose series) 2005 Hepatitis B Vaccines (1 of 3 - 19+ 3-dose series) 09/12/2011 DTaP,Tdap,and Td Vaccines (1 - Tdap) 2014 COVID-19 Vaccine (2023-2 5 season) 2024 Influenza Vaccine (#1) 2024 Alcohol/Substance Use Screening 05/13/2024 RSV Vaccine (60+ years old a nd patients) (1 - 1-dose 75+ series) 09/12/2067 Pneumococcal Vaccine: Pediat nahed (0-5 Years) and At-Risk Patients (6-64 Years) Aged Out No longer eligible b ased on patient's age to complete this topic Insurance [facility] MEDICAID Care Teams Sanitation Supervisor Relationship Specialty Start Date End Date Patient, Has No Pcp Or Ref DO NOT EDIT THIS RECORD VIA PROVIDER ON THE FLY PCP - General Truck Engine Technician 12/16/23
--- OUTSIDE RECORDS SUMMARY | 2024-06-23 15:45 | XMS_ITS | Referral Summary ---
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
== END 2024-06-23 15:28 | disposition home or self-care (01) ==
LOC: HO.HOS 14:54
DX: S52.591A Other fractures of lower end of right radius, initial encounter for closed fracture (principal)
CPT/HCPCS: 99204

== ENCOUNTER 2024-07-29 11:48 | Outpatient (REF) | payer OTHER, SELFPAY ==
--- NOTE | ~2024-07-29 | XR_ITS ---
EXAMINATION: XR WRIST, RIGHT CLINICAL INFORMATION: M25.531 - Pain in right wrist COMPARISON: June 23, 2024. TECHNIQUE: PA, lateral, and oblique views of the right wrist. FINDINGS: Sclerotic margins of the intra-articular distal metaphysis/epiphysis fracture, right radius. No callus formation. Normal alignment. Carpal bones and metacarpal bones are intact. Fiberglas cast. XR/XR wrist RT min 3V IMPRESSION: Sclerotic margins involving the intra-articular comminuted fracture distal epiphysis metaphysis of the radius without gross callus formation. Electronically signed by: João Hinojosa MD 07/30/2024 08:43 AM EDT
== END 2024-07-29 11:49 | disposition home or self-care (01) ==
LOC: HO.HOSX 11:48
PROVIDERS: Visit Provider Orthopaedic Surgery
DX: M25.531 Pain in right wrist (principal); S52.591D Other fractures of lower end of right radius, subsequent encounter for closed fracture with routine healing
CPT/HCPCS: 73110; 99212

== ENCOUNTER 2024-07-29 12:44 | Outpatient (AMB) | payer OTHER, SELFPAY ==
--- NOTE | 2024-07-29 12:49 | MHC.OFFVIS ---
Intake Visit Reasons: OV - RT distal radius fx DOI 06/21/24 Intake Note: Vishal is a 33 year old left hand dominant male who presents today for a follow up visit of his right distal radius fracture s/p fall DOI: 06/21/24. Patient reports feeling a little improvement in his pain. States at times he has soreness and throbbing pain that is located around his wrist area. Allergies No Known Allergies [No Known Allergies*] Allergy (Verified 07/29/24 13:10) HPI HPI OV - RT distal radius fx DOI 06/21/24: Details: Vishal is a 33 year old left hand dominant man who presents for a right distal radius fracture, DOI: 06/21/24. He was scheduled for an ORIF on 07/02/24 but ate breakfast and surgery was cancelled. He no-showed his in-office appointment on 07/03/24 to reschedule his surgery. He was only seen in-office by Kevon on 06/23/24. He fell from a ladder on 06/21/24, landing on his wrist. He was seen in the ED where he was sedated and his fracture was reduced, and placed in a sugar-tong splint. He complains of an occasional throbbing pain in his wrist, and more generalized soreness. He says his pain has improved somewhat in the last few weeks. 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 He has been careful to not overuse his wrist He still has the same postreduction sugar-tong splint in place today. [facility] Medical History (Updated 06/30/24 @ 08:46 by Arcelia Vuong RN) Fracture of wrist Social History Substance Use Type: Crack/Cocaine Review of Systems Const All systems reviewed & are unremarkable except as noted in HPI and below Physical Exam Const General: cooperative, healthy appearing and no acute distress Orientation/consciousness: patient oriented x3 HEENT Head: Yes normocephalic and Yes atraumatic Eyes EOM: EOMs intact bilaterally Resp Effort & Inspection: normal respiratory effort and able to speak in complete sentences Cardio Jugular venous distension: no JVD Skin General skin exam: turgor normal Rashes: no rashes Neuro General: patient oriented x3 Extrem Other: Evaluation of Right Upper Extremity: The patient is alert, oriented, and in no acute distress He was seen today in his post-reduction Sugar-tong splint Neuro: Median, Ulnar, Radial nerves motor and sensory intact and sensation is normal to the tips of all digits Vascular: Cap refill brisk ROM: He can make a fist and extend all his digits ~40 degrees pronation ~50 degree supination ~30 degrees flexion ~40 degrees extension General: No Ecchymosis. Fracture site is non-tender DRUJ stable on exam Radiographs: 3 views of the right wrist were taken and viewed by me today in clinic. They show a distal radius fracture with overall satisfactory fracture alignment and some evidence of interval bony healing. He has ~5 degrees dorsal tilt, and it is difficult to ascertain the displacement of the articular surface. Alignment appears unchanged compared to post-reductions radiographs from 06/23/24. Psych Appearance: grossly normal Affect: normal affect Attitude: cooperative Office Procedures AMB Fracture Care Details: Fracture care [id number] distal radius Fracture Billing Code: Fracture Billing Code Assessment & Plan Assessment & Plan (1) Closed fracture of right distal radius: Code(s): S52.501A - Unspecified fracture of the lower end of right radius, initial encounter for closed fracture Category: Medical Qualifiers: Encounter type: initial encounter Fracture morphology: other fracture Qualified Code(s): S52.591A - Other fractures of lower end of right radius, initial encounter for closed fracture Plan Assessment & Plan: 1. Right distal radius fracture, comminuted intra-articular From a fall 8 ft from a ladder, DOI: 06/21/24 I educated him about this condition We initially proposed operative treatment. However, He ate food prior to his surgery scheduled for 07/02/24, and no-showed his in-office appointment on 07/03/24 to reschedule his surgery. We discontinued his sugar-tong splint. He was fitted for a velcro wrist splint, to be worn when out of the house for the next 4 weeks We went over wrist range of motion exercises today in clinic, and he will work on ROM exercises at home I discussed activity modification, he is to use his hand for lightweight activities and slowly increase as tolerated over the next 4 weeks. he is to avoid any falls or impact activities for the next 6 weeks. I ordered OT hand therapy to work on ROM exercises He is a smoker. He will follow up 4-5 weeks with Kevon for a ROM check, with X-rays, 3V R wrist, OOP Please note that greater than 50 minutes was spent with this patient going over the history, evaluating the patient and radiographs, formulating possible treatment options, discussing them with the patient, and documenting the visit. Scribed for Mary Galvan MD by Steve Guerrero, medical director occupational health, on 07/29/24 at 1:25 PM, EST. Orders: Orders XR wrist RT min 3V Today M25.531 - Pain in right wrist Coding Level of Care Code Est Pt Level 5 (45526) Diagnoses Closed fracture of right distal radius S52.591A Encounter type: initial encounter Fracture morphology: other fracture CPT Codes Fracture Care - Fracture Billing Code: Fracture Billing Code ([id number])
== END 2024-07-29 13:57 | disposition home or self-care (01) ==
LOC: HO.HOS 12:45
PROVIDERS: Visit Provider Orthopaedic Surgery
DX: S52.591A Other fractures of lower end of right radius, initial encounter for closed fracture (principal)
CPT/HCPCS: 99215

== ENCOUNTER → 2024-07-29 12:53 | Outpatient (BNV) | payer OTHER, SELFPAY | PROVIDERS: Visit Provider Radiology Diagnostic Radiology | DX: S52.571A Other intraarticular fracture of lower end of right radius, initial encounter for closed fracture (principal) | CPT/HCPCS: 73110 ==